=== PATIENT | male | born 1960 | race American Indian/Alaskan Native ===

== ENCOUNTER 2017-08-21 16:31 | Emergency (ER) | payer SELFPAY ==
--- NOTE | 2017-08-21 16:36 | Emergency Department Report ---
ED CPR HPI - General Chief Complaint: Cardiac Arrest/CPR Stated Complaint: CARDIAC ARREST Time Seen by Provider: 08/21/17 16:35 Source: EMS (verbal report received from EMS.ems notes not available at time of chart dictation) Limitations: Altered Mental Status, Physical Limitation - History of Present Illness Initial Comments: This is a 57-year-old male who is previously unknown to this provider who is brought to the hospital by EMS as an [id number] cardiac arrest. Presenting rhythm was pulseless electrical activity. Patient has been receiving CPR for over 15 minutes. Upon arrival to the ER the patient is pulseless, pupils fixed and dilated, and demonstrates no signs of higher neurologic function. The patient received standard CPR and ACLS techniques. We were unable to regain return of spontaneous circulation, and thegrease cessation efforts were terminated secondary to medical futility. The family was subsequently informed. Complaint: found unresponsive -: hour(s) Place: home Initial Findings in the Field: PEA ROSC in the Field: No Associated Injuries: No Treatments Prior to Arrival: chest compressions, epinephrine mgs # - Related Data Previous Rx's Medication Instructions Recorded Last Taken Type Aspirin [Aspirin BABY CHEW TAB] 81 mg PO QDAY #30 tab.chew 12/11/13 Unknown Rx Labetalol [Normodyne TAB] 100 mg PO Q8HR #90 tablet 12/11/13 Unknown Rx Lisinopril [Zestril TAB] 5 mg PO QDAY #30 tablet 12/11/13 Unknown Rx hydrALAZINE [Apresoline TAB] 75 mg PO Q8HR #90 tablet 12/11/13 Unknown Rx Allergies Allergy/AdvReac Type Severity Reaction Status Date / Time Penicillins AdvReac Swelling Verified 12/07/13 21:27 ED Review of Systems ROS: Stated complaint: CARDIAC ARREST Other details as noted in HPI Comment: Unobtainable due to pts medical conditions ED Past Medical Hx - Past Medical History Hx Hypertension: Yes Additional medical history: Bronchitis - Social History Smoking Status: Never Smoker - Medications Home Medications: Home Medications Medication Instructions Recorded Confirmed Last Taken Type Aspirin [Aspirin BABY CHEW TAB] 81 mg PO QDAY #30 tab.chew 12/11/13 Unknown Rx Labetalol [Normodyne TAB] 100 mg PO Q8HR #90 tablet 12/11/13 Unknown Rx Lisinopril [Zestril TAB] 5 mg PO QDAY #30 tablet 12/11/13 Unknown Rx hydrALAZINE [Apresoline TAB] 75 mg PO Q8HR #90 tablet 12/11/13 Unknown Rx ED Physical Exam - General Limitations: Other (nonverbal, GCS of 3) General appearance: obtunded - Head Head exam: Present: atraumatic - Eye Eye exam: Present: other (pupils dilated and do not react to light) - ENT ENT exam: Present: normal orophraynx - Neck Neck exam: Present: normal inspection - Respiratory Respiratory exam: Absent: normal lung sounds bilaterally - Cardiovascular Cardiovascular Exam: Present: other (no pulses are appreciated). Absent: regular rate, normal rhythm - GI/Abdominal GI/Abdominal exam: Present: soft - Rectal Rectal exam: Present: normal inspection - exam: Present: normal inspection - Extremities Exam Extremities exam: Present: normal inspection - Back Exam Back exam: Present: normal inspection - Neurological Exam Neurological exam: Present: altered, other (nonverbal, GCS of 3) - Psychiatric Psychiatric exam: Present: other (nonverbal) - Skin Skin exam: Present: dry ED Course Vital Signs 08/21/17 16:40 Pulse Rate 0 L ED Medical Decision Making - Medical Decision Making Differential diagnosis, including not limited to: Cardiac arrest Critical care attestation.: If time is entered above; I have spent that time in minutes in the direct care of this critically ill patient, excluding procedure time. ED Disposition Clinical Impression: Cardiac arrest Disposition: DC-20 Is pt being admited?: No Does the pt Need Aspirin: No Condition: Undetermined Referrals: PRIMARY CARE, [Primary Care Provider] - 3-5 Days
== END 2017-08-21 21:27 ==
LOC: ED 16:31
DX: I46.9 Cardiac arrest, cause unspecified (principal); I10 Essential (primary) hypertension; Z88.0 Allergy status to penicillin
CPT/HCPCS: 82962; 99285